=== PATIENT | female | born 1940 | race Caucasian/White ===

== ENCOUNTER 2019-11-29 09:49 | Outpatient (CLI) | payer MEDICARE, OTHER, SELFPAY ==
[2019-11-29 10:13] LABS: Hematocrit 42.3 % (37.0-47.0); Hemoglobin 13.9 g/dL (12.0-15.0); Mean Corpuscular HGB Conc 32.9 g/dl (32-36); Mean Corpuscular Hemoglobin 29.8 pg (26-34); Mean Corpuscular Volume 90.6 fl (80-100); Mean Platelet Volume 9.4 fl (7.4-10.4); Platelet Count Result 244 k/mm3 (150-375); Red Blood Count 4.67 M/mm3 (4.2-5.4); Red Cell Distribution Width 14.2 % (11.5-14.5); White Blood Count 6.2 K/mm3 (4.5-10.0)
[2019-11-29 10:28] LABS: Alanine Aminotransferase 17 U/L (4-35); Albumin Level 3.9 g/dL (3.5-5.1); Alkaline Phosphatase 60 U/L (38-126); Aspartate Amino Transferase 23 U/L (14-36); Bilirubin,Total 0.5 mg/dL (0.2-1.3); Blood Urea Nitrogen 15 mg/dL (7-17); Calcium 9.1 mg/dL (8.4-10.2); Carbon Dioxide 28 mmol/L (22-30); Chloride 104 mmol/L (98-107); Estimated Glomerular Filt Rate 60; Glucose 95 mg/dL (65-105); Potassium 4.3 mmol/L (3.4-5.0); Sodium 139 mmol/L (137-145)
== END 2019-11-29 09:50 | disposition home or self-care (01) ==
LOC: ANHLAB 09:52
PROVIDERS: PCP Internal Medicine; Visit Provider Internal Medicine Rheumatology
DX: Z51.81 Encounter for therapeutic drug level monitoring (principal)
CPT/HCPCS: 36415; 80048; 80076; 85027

== ENCOUNTER 2021-01-31 10:09 | Emergency (ER) | payer MEDICARE, OTHER, SELFPAY ==
[2021-01-31] VITALS (20 sets, daily range): BP systolic 109–190; BP diastolic 69–123; PULSE 60–80; RESP 12–18; TEMP 36.6; O2SAT 92–100
--- NOTE | ~2021-01-31 | CT_ITS ---
EXAMINATION: CT pelvis wo [facility] EXAM DATE: 01/31/2021 13:10 INDICATION: Insufficiency fracture. TECHNIQUE: Spiral CT pelvis was performed without contrast. Axial, coronal and sagittal images were reviewed. The dose-length product (DLP) for this examination was 734.01 mGy-cm. The exposure was t ailored according to patient size (auto mA exposure control), and iterative reconstruction (ASIR) was used as additional dose reduction technique. Comparison is made to prior examination from 12/16/2015. FINDINGS: Sacrum, sacroiliac joints, sacral arcuate lines are intact. There are no acute fractures i dentified. There is right hip arthroplasty hardware. There is grade 2 anterolisthesis L4 on L5 withou t spondylolysis, with severe arthropathy at this level and probable severe central canal stenosis. Mo derate to severe disc disease L4-5 and L5-S1. Moderate to severe bilateral neural foraminal stenosis at L5-S1 and on the right at L4-5. Normal appendix. No pelvic lymphadenopathy. IMPRESSION: 1. L4-5 grade 2 anterolisthesis, severe central canal stenosis. 2. Intact right hip bipolar arthroplasty. Reviewed, dictated and finalized at location A.
--- NOTE | ~2021-01-31 | XR_ITS ---
EXAMINATION: XR lumbar spine min 4V DATE: 01/31/2021 11:25 INDICATION: Low back pain. TECHNIQUE: 5 views of lumbar spine were obtained. COMPARISON: Lumbar spine radiographs 10/08/2017, CT abdomen and pelvis 12/16/2015, MRI 10/07/2019 FINDINGS: There is 18 degrees dextroscoliosis of lumbar spine. There is 9 mm anterolisthesis of L4 on L5. There is 3 mm retrolisthesis of L1 on L2. There is mild chronic height loss of L1 vertebral body on the right. There is severely decreased disc height at T12-L1, L1-L2, L3-L4, L4-L5, and L5-S1 and moderately decreased disc height at L2-L3. There is multilevel facet joint osteoarthritis, severe cyndi aterally from L3-L4 through L5-S1. Surgical clips in the right upper quadrant are likely from cholecy stectomy. There is a bipolar right hip hemiarthroplasty. There are surgical clips in the abdomen. IMPRESSION: 1. Severe lumbar spondylosis. 2. Lumbar dextroscoliosis. Reviewed, dictated and finalized at location A.
--- NOTE | ~2021-01-31 | XR_ITS ---
EXAMINATION: XR hip RT min 3V w AP pelvis EXAM DATE: 01/31/2021 11:25 INDICATION: No known recent injury provided at this time. Pain of the pelvis, right hip. TECHNIQUE: Right hip frontal, 'frog leg' projections for interpretation. Frontal projection pelvis. Comparison is made to prior examination from 10/07/2019. FINDINGS: Total right hip arthroplasty, hardware intact. Femoral stem appears well seated. There are no acute pelvic, right hip fractures or dislocations identified. There is no subcutaneous gas. The soft tissue is unremarkable. Lumbar dextroscoliosis and spondylosis, correlate with x-ray report sa me date. 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 IMPRESSION: Intact right hip arthroplasty. Reviewed, dictated and finalized at location A.
--- NOTE | 2021-01-31 10:58 | ED.GENADULT ---
HPI - General Adult General Chief complaint: Extremity Problem,Nontraumatic <Victor M Cook PA-C - Last Filed: 01/31/21 14:30> Stated complaint: R LEG PAIN <Victor M Cook PA-C - Last Filed: 01/31/21 14:30> Time Seen by Provider: 01/31/21 10:25 <Victor M Cook PA-C - Last Filed: 01/31/21 14:30> Source: patient <Victor M Cook PA-C - Last Filed: 01/31/21 14:30> Mode of arrival: ambulatory <Victor M Cook PA-C - Last Filed: 01/31/21 14:30> Limitations: no limitations <Victor M Cook PA-C - Last Filed: 01/31/21 14:30> History of Present Illness HPI narrative: Patient is an 80-year-old female who presents to emergency department for evaluation of right SI region pain for 1 week patient denies injury or trauma has history of rheumatoid arthritis patient is scheduled for orthopedic surgery and has been off her methotrexate during this. Patient denies illness radicular symptoms paresthesias or other complaints and on arrival is in no distress has not taken anything for her pain patient lives at home by herself and notes that she cannot ambulate secondary to pain but is having difficulty functioning and does not have resources at home to assist her <Victor M Cook PA-C - Last Filed: 01/31/21 14:30> Related Data Home medications: Home Medications Medication Instructions Recorded Confirmed raloxifene 60 mg tablet 60 mg PO DAILY 07/15/20 <Victor M Cook PA-C - Last Filed: 01/31/21 14:30> Allergies/adverse reactions: Allergies Allergy/AdvReac Type Severity Reaction Status Date / Time amoxicillin Allergy Unknown unknown Verified 07/22/20 09:25 <Victor M Cook PA-C - Last Filed: 01/31/21 14:30> Review of Systems Review of Systems: All systems reviewed & are unremarkable except as noted in HPI and below <Victor M Cook PA-C - Last Filed: 01/31/21 14:30> PMFSH Past Medical History Medical History: Medical History (Updated 01/31/21 @ 14:20 by Victor M Cook PA-C) Rheumatoid arthritis <Victor M Cook PA-C - Last Filed: 01/31/21 14:30> Family History Family History: Family History (System 07/22/20 @ 09:25 by Nely Whatley) Mother Cerebrovascular accident Father Family history of diabetes mellitus in first degree relative <Victor M Cook PA-C - Last Filed: 01/31/21 14:30> Social History Social History: Social History Smoking status: Never smoker Alcohol intake: never <Victor M Cook PA-C - Last Filed: 01/31/21 14:30> Exam Narrative: Exam Narrative: GENERAL: Well-appearing, well-nourished, and in no acute distress. HEAD: Normocephalic, atraumatic. EYES: PERRLA and EOMI. ENT: Nares clear, no rhinorrhea or epistaxis. Mucous membranes moist. CHEST: Clear to auscultation. No respiratory distress. No wheezes rales or rhonchi HEART: Regular rate and rhythm. No murmur heard. Normal peripheral pulses. ABDOMEN: Soft, mild tenderness lower abdomen, nondistended EXTREMITIES: Normal range of motion. No edema. No midline lumbar tenderness. Tenderness of the right SI region no deformities noted no midline lumbar tenderness SKIN: Warm, dry, no rash. NEURO: No focal deficits. Alert and oriented x3. Cranial nerves II through XII grossly intact. Normal speech and gait. Patient has difficulty performing motor and strength testing with the right leg secondary to pain in the hip. Neurovascularly intact. Capillary refill less than 2 seconds PSYCH: Normal mood and affect. <Victor M Cook PA-C - Last Filed: 01/31/21 14:30> Course Course Emergency Course: Patient evaluated in the emergency department for evaluation of her right hip pain could be back pain radiating into the hip patient had imaging performed showing that she does have significant arthritis of the lower spine and findings to support the irritation she is having patient went of
[2021-01-31 11:20] LABS: Basophils Percent Auto 0.5 % (0.2-1.2); Eosinophils Absolute Auto 0.1 K/mm3 (0-0.3); Eosinophils Percent Auto 1.7 % (0-4.4); Hematocrit 41.8 % (37.0-47.0); Hemoglobin 13.8 g/dL (12.0-15.0); Immature Granulocyte Absolute 0.03 K/mm3 (0.00-0.031); Immature Granulocyte Percent A 0.4 % (0-0.5); Lymphocytes Absolute Auto 0.94 K/mm3 (0.9-3.2); Lymphocytes Percent Auto 12.2 % (18.3-44.2); Mean Corpuscular Hemoglobin 31.7 pg (26-34); Mean Corpuscular Volume 96.1 fl (80-100); Mean Platelet Volume 9.2 fl (7.4-10.4); Monocytes Absolute Auto 0.5 K/mm3 (0.1-0.6); Neutrophils Absolute Auto 6.1 K/mm3 (1.3-6.7); Neutrophils Percent Auto 79.2 % (45.5-73.1); Platelet Count Result 225 k/mm3 (150-375); Red Blood Count 4.35 M/mm3 (4.2-5.4); Red Cell Distribution Width 14.9 % (11.5-14.5); White Blood Count 7.7 K/mm3 (4.5-10.0)
[2021-01-31] MEDS: SODIUM CHLORIDE 0.9% IV 500 ML 999 ML IV CONT (11:24)
[2021-01-31 11:29] LABS: Anion Gap 5 mmol/L (8-16); Blood Urea Nitrogen 14 mg/dL (7-17); Calcium 9.4 mg/dL (8.4-10.2); Carbon Dioxide 29 mmol/L (22-30); Chloride 107 mmol/L (98-107); Estimated CRCL calculation 42 ml/min; Estimated Glomerular Filt Rate 60; Glucose 99 mg/dL (65-105); Potassium 4.3 mmol/L (3.4-5.0); Sodium 141 mmol/L (137-145)
[2021-01-31] MEDS: LIDOCAINE 5% PATCH 1 PATCH TRANSDERM (12:18)
[2021-01-31 13:05] LABS: Add Urine Microscopic? YES; Appearance Urine Cloudy (Clear); Bacteria Urine Trace /hpf; Bilirubin Urine Negative (Negative); Color Urine Yellow (Yellow); Glucose Urine UA Negative (Negative); Ketones Urine Negative (Negative); Leukocyte Esterase Ur 3+ LEU/UL (Negative); Mucus Urine Rare /lpf; Nitrate Urine Negative (Negative); Protein Urine 1+ mg/dL (Negative); RBC Urine 21-50 /hpf (0-2); Specific Grav Ur 1.023 (1.001-1.035); Squamous Epithelial Cell Urine Rare /hpf (Few); Urobilinogen Urine Negative mg/dL (<2.0); WBC Urine >75 /hpf
[2021-01-31 13:12] LABS: Blood Urine Negative (Negative)
== END 2021-01-31 15:10 | disposition home or self-care (01) ==
PROVIDERS: Emergency Medicine Emergency Medical Services; Emergency Provider General Practice; PCP Internal Medicine
DX: M54.41 Lumbago with sciatica, right side (principal); N39.0 Urinary tract infection, site not specified; M06.9 Rheumatoid arthritis, unspecified; M47.816 Spondylosis without myelopathy or radiculopathy, lumbar region; M48.061 Spinal stenosis, lumbar region without neurogenic claudication; Z96.641 Presence of right artificial hip joint
CPT/HCPCS: 36415; 72110; 72192; 73502; 80048; 81001; 85025; 87077; 87086; 87088; 87186; 96365; 96375; 99284; A9270; J0131; J0696; J7040

== ENCOUNTER 2021-02-13 17:21 | Outpatient (CLI) | payer MEDICARE, OTHER, SELFPAY ==
[2021-02-13 17:58] LABS: CRP 1.3 mg/dL (<1.0)
[2021-02-13 18:58] LABS: Erythrocyte Sedimentation Rate 17 mm/hr (0-20)
== END 2021-02-13 17:22 | disposition home or self-care (01) ==
LOC: ANHLAB 17:26
PROVIDERS: PCP Internal Medicine; Visit Provider Orthopaedic Surgery
DX: M25.551 Pain in right hip (principal); Z96.651 Presence of right artificial knee joint
CPT/HCPCS: 36415; 85652; 86140

== ENCOUNTER 2021-04-23 15:59 | Outpatient (CLI) | payer MEDICARE, OTHER, SELFPAY ==
--- NOTE | ~2021-04-23 | US_ITS ---
EXAMINATION:US venous doppler LE RT INDICATION:Right leg swelling TECHNIQUE: Multiple grayscale, color flow and Doppler images of the right lower extremity deep venous systems were obtained and reviewed. COMPARISON:No prior studies for comparison. FINDINGS: The common femoral, superficial femoral and popliteal veins demonstrate normal respiratory variation, augmentation and compressibility. Color flow is also seen within the posterior tibial, pe roneal, greater saphenous and profunda veins. IMPRESSION: 1: No lower extremity deep venous thrombosis. Reviewed, dictated and finalized at location A.
== END 2021-04-23 16:00 | disposition home or self-care (01) ==
LOC: ANHIMG 16:01
PROVIDERS: PCP Internal Medicine; Visit Provider Orthopaedic Surgery
DX: R60.0 Localized edema (principal)
CPT/HCPCS: 93971

== ENCOUNTER 2022-08-27 09:50 | Outpatient (CLI) | payer MEDICARE, OTHER, SELFPAY ==
--- NOTE | 2022-08-27 | ECHO_ITS ---
Patient Info Name: Aline Lott Age: 81 years : 1940 Gender: Female Ht: 62 in Wt: 169 lbs BSA: 1.86 m2 HR: 63 bpm BP: 138 / 79 mmHg Heart Rhythm: Sinus Rhythm Exam Date: 08/27/2022 10:30 AM Exam Location: [facility] Pulmonary Patient Status: Outpatient Admit Date: 08/27/2022 Staff Ordering Physician: Margarita*Herman MD [employer] Tender: Louie You RDCS Attending Provider: Margarita*Herman MD Referring Physician: Mitchell RAVI; Exam Type: CA echo doppler color flow Study Info Indications R55 - Syncope and collapse Complete two-dimensional, color flow and Doppler transthoracic echocardiogram is performed. Summary 1. Complete two-dimensional, color flow and Doppler transthoracic echocardiogram is performed. 2. Left ventricular chamber dimension is normal. 3. Left ventricular systolic function is normal, estimated at 60-65%. 4. There is no increased left ventricular wall thickness. 5. The left ventricular diastolic function is grade I diastolic dysfunction. 6. Left atrial chamber dimension is severely enlarged. 7. Right atrial chamber dimension is mildly enlarged. 8. There is mild aortic valve regurgitation. 9. The mitral valve has calcified annulus and anterior prolapse. 10. There is mild mitral valve regurgitation. 11. There is mild tricuspid valve regurgitation. Left Ventricle Left ventricular chamber dimension is normal. Left ventricular systolic function is normal, estimated at 60-65%. There is no increased left ventricular wall thickness. The left ventricular diastolic function is grade I diastolic dysfunction. Right Ventricle Right ventricular chamber dimension is normal. Right ventricular systolic function is normal. Left Atria Left atrial chamber dimension is severely enlarged. Right Atria Right atrial chamber dimension is mildly enlarged. Atrial Septum Intact interatrial septum visualized by color flow imaging. Aortic Valve The aortic valve is trileaflet. There is mild aortic valve sclerosis. There is no aortic valve stenosis. There is mild aortic valve regurgitation. Pulmonic Valve The pulmonic valve is normal. There is no pulmonic valve stenosis. There is trace pulmonic regurgitation. Mitral Valve The mitral valve has calcified annulus and anterior prolapse. There is no mitral valve stenosis. There is mild mitral valve regurgitation. Tricuspid Valve The tricuspid valve leaflets are normal. There is no significant tricuspid valve stenosis. There is mild tricuspid valve regurgitation. Pericardium/Pleural The pericardium appears normal. There is trivial pericardial effusion. Inferior Vena Cava Normal inferior vena cava with >50% collapse upon inspiration consistent with normal right atrial pressure, 5 mmHg. Aorta The aortic root size at the sinus of Valsalva is normal. The prox ascending aorta size is normal. Left Ventricular Outflow Tract Name Value Normal LVOT 2D LVOT Diameter 2.0 cm LVOT Doppler LVOT Peak Gradient 4 mmHg LVOT Mean Gradient 3 mmHg
--- NOTE | ~2022-08-27 | US_ITS ---
EXAMINATION: US carotid duplex BI DATE: 08/27/2022 11:50 INDICATION: Syncope and collapse TECHNIQUE: Grayscale, color Doppler, and pulsed Doppler images of the cervical carotid arteries were obtained. The degree of vessel stenosis is placed in one of the following categories: normal, <50%, 5 0-69%, >=70% but less than near-occlusion, near-occlusion, or total occlusion. Note that percent sten osis relative to normal distal artery lumen diameter is indirectly measured from velocity measurement s as described by Joseph, et al. Radiology 2003; 229:340-346. COMPARISON: None. FINDINGS: RIGHT: The right common carotid artery (CCA) peak systolic velocity (PSV) is 81 cm/s. The right internal car otid artery (ICA) PSV is 85 cm/s. The right ICA end-diastolic velocity (EDV) is 23 cm/s. The right IC A/CCA PSV ratio is 1.1. Grayscale and color Doppler images yield an estimate of <50% diameter reducti on from plaque in the ICA. The external carotid artery (ECA) PSV is 132 cm/s. There is antegrade flow in the right vertebral artery. LEFT: The left CCA PSV is 85 cm/s. The left ICA PSV is 78 cm/s. The left ICA EDV is 27 cm/s. The left ICA/C CA PSV ratio is 0.9. Grayscale and color Doppler images yield an estimate of <50% diameter reduction from plaque in the ICA. The ECA PSV is 84 cm/s. There is antegrade flow in the left vertebral artery. IMPRESSION: 1. <50% stenosis in the right internal carotid artery. 2. <50% stenosis in the left internal carotid artery. Reviewed, dictated and finalized at location A. GER DATA
--- NOTE | 2022-08-31 15:13 | WPDHOLTEREM ---
Holter/Event Monitor Holter/Event Monitor Date of procedure: 08/31/22 Holter/Event Procedure: 48 Hr Holter Monitor Diagnosis: Syncope and collapse Indications: Syncope and collapse Image/Tracing Quality: Acceptable Finding: Underlying rhythm is sinus with an average heart rate of 72 beats per minute with a minimum of 52 beats per minute occurring at 2:59 a.m. and maximum 120 beats per minute occurring at 4:32 p.m.. Infrequent premature ventricular contractions totaling 244 which the vast majority were isolated PVCs without sustained or nonsustained ventricular tachycardia. Infrequent supraventricular ectopy totaling 349 which were 9 atrial runs longest which was 7 beats in duration consistent with atrial tachycardia which occurred at 7:42 a.m.. No atrial fibrillation or atrial flutter observed. Majority of supraventricular ectopy was in the form of isolated premature atrial contractions and rare atrial pairs. Longest RR interval 1.5 seconds occurring at 1:36 a.m.. No prolonged pauses or high-grade AV blocks noted. No symptoms returned in conjunction with this study. Conclusion: 1. Underlying sinus rhythm with infrequent PACs and PVCs 2. Occasional brief runs of atrial tachycardia along with which to 7 beats in duration. 3. No atrial fibrillation, atrial flutter, prolonged pauses or high-grade AV blocks. 4. No symptoms returned in conjunction with the study.
== END 2022-08-27 09:51 | disposition home or self-care (01) ==
PROVIDERS: PCP Internal Medicine; Visit Provider Internal Medicine
DX: R55 Syncope and collapse (principal); I65.23 Occlusion and stenosis of bilateral carotid arteries; I36.1 Nonrheumatic tricuspid (valve) insufficiency; I34.0 Nonrheumatic mitral (valve) insufficiency
CPT/HCPCS: 93225; 93226; 93306; 93880

== ENCOUNTER 2024-07-24 10:00 | Outpatient (RCR) | payer MEDICARE, OTHER, SELFPAY ==
--- NOTE | 2024-05-04 11:57 | OPREHPOC ---
Outpatient Therapy Plan of Care This is a Multidisciplinary Plan of Care that may contain components documented by all disciplines (PT, OT, and ST.) PT Problem 1 PT Problem #1 Knowledge Deficit PT Goal 1 Goal Patient will be independent with HEP Target Visit 4 PT Problem 2 PT Problem #2 Pain PT Goal 1 Goal Report no pain greater than 1/10 with ambulation of 200' Target Visit 8 PT Problem 3 PT Problem #3 Impaired Gait PT Goal 1 Goal Patient will ambulate with improved terminal stance bilaterally with reduced compensated Trendelenburg Target Visit 8 PT Problem 4 PT Problem #4 Impaired Strength PT Goal 1 Goal Patient will improve R lateral hip strength to 4/5 to improve lateral stability with Gait and ADLs Target Visit 8 PT Goal 2 Goal Improve cyndi hip flexion to 4/5 to improve foot clearance with gait Target Visit 8 PT Problem 5 PT Problem #5 Impaired Range of Motion PT Goal 1 Goal Improve cyndi hip abduction to 35 degrees to improve capsular mobility for gait and ADLs Target Visit 8
--- NOTE | 2024-05-04 11:57 | PTOPEVAL1 ---
Assessment and note entered by Tyrone Garay, PT Evaluation Information Assessment Status Evaluation Diagnosis Bursitis of R hip ICD-10 Condition Codes (PT) Pain in right hip M25.551 Onset 2014 Subjective Information Reports that she has a history of cyndi TKA. She reports that in the past few months she has noted increased pain in her right hip. Pain is superficial and she reports that she does have a very bad back. Heating pads usually help. Pain is sporadic as she feels she does not have the strength in her leg that she needs. Feels she is walking like a duck. Wants to even her gait pattern and work on strengthening hip to tolerance . Reported Pain Level Pain Score 0: Self Report Assessment PT Clinical Summary Patient presents with weakness and loss of ROM to cyndi hips, greater on R hip. Patient has compensated Trendelenburg on R hip regardless of cane use. Will benefit form skilled therapy to address deficits to improve lateral hip strength, stability, and gait pattern for ADL improvement. Plan of Care Interventions Gait Training,Manual Therapy,Neuro Re-education, Therapeutic Activities,Therapeutic Exercise PT Services Indicated Yes Treatment Frequency and 2x/week for 8 visits Duration These treatments will address the objective and functional deficits as defined above. The patient will be advanced safely and appropriately in order for the patient to progress towards his/her prior level of function. Additional exercises will be introduced and as well as a comprehensive home exercise program upon discharge, if needed, ?to ensure carryover of functional gains achieved in the clinic. This treatment plan has been reviewed and agreement upon by the patient.
--- NOTE | 2024-06-22 16:53 | OPREHPOC ---
Outpatient Therapy Plan of Care This is a Multidisciplinary Plan of Care that may contain components documented by all disciplines (PT, OT, and ST.) PT Problem 1 PT Problem #1 Knowledge Deficit PT Goal 1 Goal / Goal Update Patient will be independent with HEP Target Visit 4 Progress Met PT Problem 2 PT Problem #2 Pain PT Goal 1 Goal / Goal Update Report no pain greater than 1/10 with ambulation of 200' Target Visit 8 Progress Met PT Problem 3 PT Problem #3 Impaired Gait PT Goal 1 Goal / Goal Update Patient will ambulate with improved terminal stance bilaterally with reduced compensated Trendelenburg Target Visit 8 Progress Partially Met PT Problem 4 PT Problem #4 Impaired Strength PT Goal 1 Goal / Goal Update Patient will improve R lateral hip strength to 4/5 to improve lateral stability with Gait and ADLs Target Visit 8 Progress Partially Met PT Goal 2 Goal / Goal Update Improve cyndi hip flexion to 4/5 to improve foot clearance with gait Target Visit 8 Progress Partially Met PT Problem 5 PT Problem #5 Impaired Range of Motion PT Goal 1 Goal / Goal Update Improve cyndi hip abduction to 35 degrees to improve capsular mobility for gait and ADLs Target Visit 8 Progress Met
--- NOTE | 2024-06-22 16:53 | PTOPPROG ---
Assessment and note entered by Tyrone Garay, PT Evaluation Information Assessment Status Progress Diagnosis Bursitis of R hip ICD-10 Condition Codes (PT) Pain in right hip M25.551 Onset 2014 Subjective Information Patient reports that she feels she is doing a lot better. Does not however feel that she is in a position where she is able to do everything on her own yet and would like some continued guidance for hip strengthening and gait correction. Would like to continue PT. Assessment PT Clinical Summary Patient has seen strength and mobility improvement but continues to show significant hip weakness. She shows continued progress and understanding including proper use of cane. Will benefit from continued therapy to address these deficits moving forward. Plan of Care Interventions Gait Training,Manual Therapy,Neuro Re-education, Therapeutic Activities,Therapeutic Exercise PT Services Indicated Yes Treatment Frequency and 1x/week for 4 visits Duration These treatments will address the objective and functional deficits as defined above. The patient will be advanced safely and appropriately in order for the patient to progress towards his/her prior level of function. Additional exercises will be introduced and as well as a comprehensive home exercise program upon discharge, if needed, ?to ensure carryover of functional gains achieved in the clinic. This treatment plan has been reviewed and agreement upon by the patient.
--- NOTE | 2024-07-17 09:06 | PCPTNOTE ---
Pt cancelled stating she broke some of her toes.
--- NOTE | 2024-07-24 10:47 | PTOPDC ---
Assessment and note entered by Tigist Juarez, PT Discharge Report Assessment Status Discharge Diagnosis Bursitis of R hip ICD-10 Condition Codes (PT) Pain in right hip M25.551 Onset 2014 Subjective Information stubbed toes on door jam and fractured L toes- giving her pain and problems with walking--they are blue and swollen; have been doing the exercises; use the cane only when go out places; Reported Pain Level Pain Score Self Report Additional Pain Score Comments sore to touch over R lateral hip; range of pain 0-1/10; also pain in L toes due to fractures; Assessment PT Clinical Summary Leyla has received a total of 11 PT sessions. Compared to the last reevaluation: pain now 0-1/10 over R lateral hip; increase strength of hip, but abduction still weak at 3-/5; 2 minute walking test distance from 225 to 250' with cane; continues to have lateral motion R/L of trunk with walking. Education completed for HEP and gait pattern. The goals are partially met. Discharge PT. She is to continue with HEP and progress activity as tolerated, with her L toe fractures. Plan of Care PT Services Indicated No
== END 2024-07-24 11:53 | disposition home or self-care (01) ==
LOC: ANHPT 10:00
PROVIDERS: PCP Internal Medicine; Visit Provider Physician Assistant Surgical
DX: M70.71 Other bursitis of hip, right hip (principal)
CPT/HCPCS: 97110; 97116; 97140; 97161